=== PATIENT | female | born 1965 | race Caucasian/White ===

== ENCOUNTER 2017-09-11 19:07 | Inpatient (IN) | payer MEDICARE, MEDICAID ==
[~2017-09-11] VITALS: Ht 167.6 cm; Wt 78.4 kg
[~2017-09-11 19:07] MED LIST: ALBU0.084 NEB; ALBUAER3 IN; ALEN70TA55 PO; BUDE160A3 INH; CITA-73 PO; CYCL5TAB PO; EST0625T PO; IBUP600T27 PO; LORA1TAB12 PO; NOR10T PO; OMEP20CA74 OR; PRED-188 PO; SUCR1TAB36 PO; ZOLP10TA PO
[2017-09-11] MEDS ORDERED: OXYCODONE W/ ACETAMINOPHEN 5/325MG TABLET PO ONE (21:00)
[2017-09-11] MEDS ORDERED: methylPREDNISolone SOD SUCC 125 MG/2 ML VL IV ONE (21:00)
[2017-09-11] MEDS ORDERED: ALBUTEROL SULF 2.5 MG/0.5ML(0.5%) NEB SOLN NEB ONE (21:00)
[2017-09-11] MEDS ORDERED: IBUPROFEN 600 MG TAB PO ONE (21:00)
[2017-09-11 21:45] LABS: Basophils # (auto) 0.2 uL; Basophils % (auto) 1.3 % (0.0-2.0); Eosinophils # (auto) 0 uL; Hematocrit 38.3 % (36.0-46.0); Hemoglobin 12.6 g/dL (12.2-16.2); Lymphocytes # (auto) 0.5 uL; Lymphocytes % (auto) 3.8 % (10.0-50.0); Mean Corpuscular Hemoglobin 30.1 pg (28.0-32.0); Mean Corpuscular Hgb Conc. 32.8 g/dL (32.0-36.0); Mean Corpuscular Volume 91.7 fL (80.0-100.0); Monocytes # (auto) 0.9 uL; Monocytes % (auto) 7.1 % (0.0-12.0); Neutrophils # (auto) 11.7 uL; Neutrophils % (auto) 87.8 % (37.0-80.0); Platelet Count (auto) 275 10^3/uL (140-450); Red Blood Cells 4.18 10^6/uL (4.0-5.20); White Blood Cell 13.3 10^3/uL (4.4-10.8)
[2017-09-11 22:01] LABS: Albumin 3.6 g/dL (3.4-5.0); BUN/Creatinine Ratio 14.5; Bilirubin, Total 0.3 mg/dL (0.2-1.0); Calcium 8.7 mg/dL (8.5-10.1); Potassium 4.4 mmol/L (3.5-5.1); Total Protein 6.7 g/dL (6.4-8.2)
[2017-09-11] MEDS ORDERED: LORazepam 0.5 MG TAB PO ONE (23:00)
[2017-09-11] MEDS ORDERED: ZOLPIDEM TARTRATE 5 MG TAB PO ONE (23:00)
[2017-09-11 23:20] LABS: Urine WBC None Seen /hpf (0 - 5)
[2017-09-11 23:40] LABS: Urine Bacteria NONE SEEN /hpf (None Seen); Urine Blood Negative /uL (Negative); Urine Mucus FEW (None Seen); Urine Specific Gravity 1.008 (1.001-1.035)
[2017-09-11] MEDS ORDERED: LEVOFLOXACIN 500MG 100 ML IV ONE (23:45)
[2017-09-12] VITALS (7 sets, daily range): BP systolic 122–133; BP diastolic 69–91
[2017-09-12] MEDS ORDERED: LORazepam 2MG/ML-1ML VIAL IV PRN
[2017-09-12] MEDS ORDERED: ACETAMINOPHEN 500 MG TAB PO PRN
[2017-09-12] MEDS ORDERED: ONDANSETRON HCL 4 MG/2 ML VIAL IV PRN
[2017-09-12] MEDS ORDERED: ZOLPIDEM TARTRATE 5 MG TAB PO PRN
[2017-09-12] MEDS ORDERED: DOXYCYCLINE HYC 100MG/250ML 250 ML IV SCH (02:00)
[2017-09-12] MEDS: OXYCODONE W/ ACETAMINOPHEN 5/325MG TABLET PO PRN ×3 (03:49→17:43)
[2017-09-12] MEDS: IPRATROPIUM BROM 0.5 MG/2.5ML INH SOL NEB SCH ×4 (06:00→18:00)
[2017-09-12 06:02] LABS: Calcium 8.8 mg/dL (8.5-10.1); Potassium 4.5 mmol/L (3.5-5.1)
[2017-09-12 06:05] LABS: BUN/Creatinine Ratio 13.9
[2017-09-12] MEDS: ALBUTEROL SULF 2.5 MG/0.5ML(0.5%) NEB SOLN NEB SCH ×4 (06:19→20:14)
[2017-09-12 06:36] LABS: Basophils # (auto) 0 uL; Basophils % (auto) 0.4 % (0.0-2.0); Eosinophils # (auto) 1.1 uL; Eosinophils % (auto) 10.4 % (0.0-7.0); Hematocrit 38.6 % (36.0-46.0); Hemoglobin 12.5 g/dL (12.2-16.2); Lymphocytes # (auto) 0.3 uL; Lymphocytes % (auto) 2.8 % (10.0-50.0); Mean Corpuscular Hemoglobin 29.9 pg (28.0-32.0); Mean Corpuscular Hgb Conc. 32.3 g/dL (32.0-36.0); Mean Corpuscular Volume 92.7 fL (80.0-100.0); Monocytes # (auto) 0.1 uL; Monocytes % (auto) 0.9 % (0.0-12.0); Neutrophils # (auto) 8.8 uL; Neutrophils % (auto) 85.5 % (37.0-80.0); Platelet Count (auto) 276 10^3/uL (140-450); Red Blood Cells 4.17 10^6/uL (4.0-5.20); White Blood Cell 10.3 10^3/uL (4.4-10.8)
[2017-09-12] MEDS ORDERED: guaiFENesin-DM 100/10mg/5ml SYR PO PRN (10:45)
[2017-09-12] MEDS ORDERED: methylPREDNISolone SOD SUCC 40 MG/ML VL IV ONE (10:45)
[2017-09-12] MEDS ORDERED: PANTOPRAZOLE 40 MG TAB PO ONE ×2 (11:00→11:15)
[2017-09-12] MEDS ORDERED: DEXTROSE (50%) 50ML SYRG IV PRN (11:00)
[2017-09-12] MEDS: amLODIPine BESYLATE 5 MG TAB PO SCH (11:04)
[2017-09-12] MEDS ORDERED: ENOXAPARIN SOD 40 MG/0.4 ML SYRINGE SC ONE (11:15)
[2017-09-12] MEDS ORDERED: DOCUSATE SOD 100 MG CAP PO PRN (11:30)
[2017-09-12] MEDS: ACCU-CHEK COMFORT CURVE STRIP VI SCH ×3 (11:34→22:10)
[2017-09-12] MEDS: InsuLIN REG 1unit/0.01ml Soln (100units/ml) SC SCH ×3 (12:06→22:10)
[2017-09-12] MEDS: LORazepam 0.5 MG TAB PO PRN (12:06)
[2017-09-12] MEDS: LORATADINE 10 MG TAB PO SCH (12:06)
[2017-09-12] MEDS: DOXYCYCLINE 100 MG TAB/CAP PO SCH (21:39)
[2017-09-12] MEDS: methylPREDNISolone SOD SUCC 40 MG/ML VL IV SCH (21:39)
[2017-09-13] MEDS: OXYCODONE W/ ACETAMINOPHEN 5/325MG TABLET PO PRN ×2 (03:19→20:16)
[2017-09-13] MEDS: InsuLIN REG 1unit/0.01ml Soln (100units/ml) SC SCH ×4 (05:40→22:00)
[2017-09-13] MEDS: ACCU-CHEK COMFORT CURVE STRIP VI SCH ×4 (05:40→22:00)
[2017-09-13] MEDS: IPRATROPIUM BROM 0.5 MG/2.5ML INH SOL NEB SCH ×4 (07:11→19:56)
[2017-09-13] MEDS: ALBUTEROL SULF 2.5 MG/0.5ML(0.5%) NEB SOLN NEB SCH ×4 (07:11→19:56)
[2017-09-13 07:30] VITALS: BP 117/80
[2017-09-13 08:00] VITALS: BP 117/80
[2017-09-13] MEDS: LORATADINE 10 MG TAB PO SCH (09:36)
[2017-09-13] MEDS: methylPREDNISolone SOD SUCC 40 MG/ML VL IV SCH (09:36)
[2017-09-13] MEDS: amLODIPine BESYLATE 5 MG TAB PO SCH (09:37)
[2017-09-13] MEDS: PANTOPRAZOLE 40 MG TAB PO SCH (09:38)
[2017-09-13] MEDS: DOXYCYCLINE 100 MG TAB/CAP PO SCH ×2 (09:38→22:59)
[2017-09-13] MEDS ORDERED: ENOXAPARIN SOD 40 MG/0.4 ML SYRINGE SC SCH (10:00)
[2017-09-13 13:22] VITALS: BP 126/76
[2017-09-13 16:49] VITALS: BP 121/75
[2017-09-13 22:00] VITALS: BP 144/89
[2017-09-13] MEDS: methylPREDNISolone SOD SUCC 125 MG/2 ML VL IV SCH (23:00)
[2017-09-13] MEDS: LORazepam 0.5 MG TAB PO PRN (23:07)
[2017-09-14] MEDS: OXYCODONE W/ ACETAMINOPHEN 5/325MG TABLET PO PRN ×2 (02:26→08:52)
[2017-09-14 05:00] VITALS: BP 111/68
[2017-09-14 05:59] LABS: Basophils # (auto) 0 uL; Eosinophils # (auto) 0 uL; Hematocrit 40.6 % (36.0-46.0); Hemoglobin 13.4 g/dL (12.2-16.2); Lymphocytes # (auto) 0.5 uL; Lymphocytes % (auto) 3.8 % (10.0-50.0); Mean Corpuscular Hemoglobin 30.5 pg (28.0-32.0); Mean Corpuscular Volume 92.5 fL (80.0-100.0); Monocytes # (auto) 0.6 uL; Monocytes % (auto) 4.5 % (0.0-12.0); Neutrophils # (auto) 11.9 uL; Neutrophils % (auto) 91.7 % (37.0-80.0); Platelet Count (auto) 297 10^3/uL (140-450); Red Blood Cells 4.39 10^6/uL (4.0-5.20); Red Cell Distribution Width 14.3 % (11.8-14.3)
[2017-09-14] MEDS: IPRATROPIUM BROM 0.5 MG/2.5ML INH SOL NEB SCH ×3 (06:00→13:50)
[2017-09-14 06:21] LABS: Calcium 8.8 mg/dL (8.5-10.1); Magnesium 2.7 mg/dL (1.6-2.6); Potassium 4.2 mmol/L (3.5-5.1)
[2017-09-14] MEDS: ALBUTEROL SULF 2.5 MG/0.5ML(0.5%) NEB SOLN NEB SCH ×3 (06:21→13:50)
[2017-09-14 06:23] LABS: BUN/Creatinine Ratio 27.5
[2017-09-14] MEDS: ACCU-CHEK COMFORT CURVE STRIP VI SCH ×2 (06:56→11:30)
[2017-09-14] MEDS: InsuLIN REG 1unit/0.01ml Soln (100units/ml) SC SCH ×2 (06:56→11:30)
[2017-09-14 07:24] VITALS: BP 121/81
[2017-09-14 08:00] VITALS: BP 121/81
[2017-09-14] MEDS: methylPREDNISolone SOD SUCC 125 MG/2 ML VL IV SCH (10:15)
[2017-09-14] MEDS: LORATADINE 10 MG TAB PO SCH (10:15)
[2017-09-14] MEDS: DOXYCYCLINE 100 MG TAB/CAP PO SCH (10:16)
[2017-09-14] MEDS: amLODIPine BESYLATE 5 MG TAB PO SCH (10:16)
[2017-09-14] MEDS: PANTOPRAZOLE 40 MG TAB PO SCH (10:16)
[2017-09-14 11:50] VITALS: BP 128/85
[2017-09-14] MEDS ORDERED: DOX100T PO (13:53)
[2017-09-14 15:30] VITALS: BP 128/85
== END 2017-09-14 15:30 | disposition home or self-care (01) | DRG 189 ==
LOC: EDBD 19:07 → ER 19:15 → OVERFLOW 19:16 → WEST WING 09-12 08:13
PROVIDERS: ADMIT Nurse Practitioner Family; ATTEND Internal Medicine
PROC: 5A09357 Assistance with Respiratory Ventilation, Less than 24 Consecutive Hours, Continuous Positive Airway Pressure (ICD-10-PCS; principal; 2017-09-11)
DX: J96.21 Acute and chronic respiratory failure with hypoxia (principal); Z99.81 Dependence on supplemental oxygen; J44.0 Chronic obstructive pulmonary disease with (acute) lower respiratory infection; E11.9 Type 2 diabetes mellitus without complications; E78.5 Hyperlipidemia, unspecified; D72.829 Elevated white blood cell count, unspecified; J44.1 Chronic obstructive pulmonary disease with (acute) exacerbation; J96.11 Chronic respiratory failure with hypoxia; J20.9 Acute bronchitis, unspecified; F41.9 Anxiety disorder, unspecified; I10 Essential (primary) hypertension; K21.9 Gastro-esophageal reflux disease without esophagitis; T38.0X5A Adverse effect of glucocorticoids and synthetic analogues, initial encounter; Z79.51 Long term (current) use of inhaled steroids; Z79.52 Long term (current) use of systemic steroids; Z79.899 Other long term (current) drug therapy; Z82.5 Family history of asthma and other chronic lower respiratory diseases; Z87.891 Personal history of nicotine dependence; Z90.710 Acquired absence of both cervix and uterus; Z82.61 Family history of arthritis
CPT/HCPCS: 36415; 36600; 71045; 80048; 80053; 81001; 82805; 82962; 83036; 83605; 83735; 83880; 84484; 85025; 85379; 87040; 93005; 94640; 94660; 96365; 96367; 96375; J1815; J1956; J3490

== ENCOUNTER 2018-02-26 05:51 | Inpatient (IN) | payer MEDICARE, MEDICAID ==
[2018-02-26] VITALS (10 sets, daily range): BP systolic 107–166; BP diastolic 37–114
[~2018-02-26] VITALS: Ht 167.6 cm; Wt 72.5 kg
[~2018-02-26 05:51] MED LIST changes: +DOX100T PO
[2018-02-26] MEDS ORDERED: cefTRIAXone 1GM/10ml IVPUSH 10 ML IV ONE (06:15)
[2018-02-26] MEDS ORDERED: IPRATROPIUM BROM 0.5 MG/2.5ML INH SOL NEB ONE (06:15)
[2018-02-26] MEDS ORDERED: ALBUTEROL SULF 2.5 MG/0.5ML(0.5%) NEB SOLN NEB ONE (06:15)
[2018-02-26] MEDS ORDERED: LORazepam 2MG/ML-1ML VIAL IV ONE ×2 (06:15→08:15)
[2018-02-26] MEDS ORDERED: methylPREDNISolone SOD SUCC 125 MG/2 ML VL IV ONE ×2 (06:15)
[2018-02-26] MEDS ORDERED: MAGNESIUM SULFATE 1GM/100ML 100 ML IV ONE (06:33)
[2018-02-26 06:37] LABS: Basophils # (auto) 0.2 uL; Basophils % (auto) 1.1 % (0.0-2.0); Eosinophils # (auto) 0.4 uL; Eosinophils % (auto) 2.6 % (0.0-7.0); Hematocrit 40.5 % (36.0-46.0); Hemoglobin 13.7 g/dL (12.2-16.2); Lymphocytes # (auto) 2.3 uL; Lymphocytes % (auto) 14.1 % (10.0-50.0); Mean Corpuscular Hemoglobin 30.8 pg (28.0-32.0); Mean Corpuscular Hgb Conc. 33.8 g/dL (32.0-36.0); Mean Corpuscular Volume 90.9 fL (80.0-100.0); Monocytes # (auto) 2.6 uL; Monocytes % (auto) 16.1 % (0.0-12.0); Neutrophils # (auto) 10.6 uL; Neutrophils % (auto) 66.1 % (37.0-80.0); Platelet Count (auto) 297 10^3/uL (140-450); Red Blood Cells 4.45 10^6/uL (4.0-5.20); Red Cell Distribution Width 14.1 % (11.8-14.3)
[2018-02-26] MEDS: MAGNESIUM SULFATE 1GM/100ML 100 ML IV SCH ×2 (06:38→08:07)
[2018-02-26 06:48] LABS: BUN/Creatinine Ratio 14.8; Potassium 3.6 mmol/L (3.5-5.1)
[2018-02-26] MEDS ORDERED: VANCOMYCIN 1GM/250ML 250 ML IV ONE (08:15)
[2018-02-26] MEDS ORDERED: LORazepam 2MG/ML-1ML VIAL ONE (08:21)
[2018-02-26] MEDS ORDERED: VANCOMYCIN PER PHARMACY 0 MG IV SCH (09:45)
[2018-02-26] MEDS ORDERED: MIDAZOLAM DRIP 50 mg/50mL 50 ML IV ONE (09:46)
[2018-02-26] MEDS ORDERED: ETOMIDATE (2MG/ML) 20ML VIAL IV ONE ×2 (09:46→14:15)
[2018-02-26] MEDS ORDERED: SUCCINYLCHOLINE CHLORIDE 20 MG/ML 10ML VIAL IV ONE ×2 (09:47→14:15)
[2018-02-26] MEDS: SODIUM CHLORIDE 0.9% 1,000 ML IV SCH (10:00)
[2018-02-26] MEDS ORDERED: NALBUPHINE HCL 10 MG/1ml INJECTION IV PRN (10:00)
[2018-02-26] MEDS ORDERED: ONDANSETRON HCL 4 MG/2 ML VIAL IV PRN ×2 (10:00→10:15)
[2018-02-26] MEDS ORDERED: NITROGLYCERIN 0.4 MG SL TAB SL PRN (10:00)
[2018-02-26] MEDS ORDERED: MORPHINE SULF(PF) 0.5MG/ML 10ML VIAL IV PRN (10:00)
[2018-02-26] MEDS ORDERED: MORPHINE SULFATE 8mg/ml INJ SDV IV PRN (10:15)
[2018-02-26] MEDS: MIDAZOLAM DRIP 50 mg/50mL 50 ML IV SCH ×2 (10:16→15:02)
[2018-02-26] MEDS ORDERED: PROPOFOL 100 ML IV ONE (10:19)
[2018-02-26] MEDS: PROPOFOL 100 ML IV SCH ×3 (10:20→15:02)
[2018-02-26] MEDS: FAMOTIDINE (10MG/ML) 2ML VL IV SCH (12:00)
[2018-02-26] MEDS: ENOXAPARIN SOD 40 MG/0.4 ML SYRINGE SC SCH (12:00)
[2018-02-26] MEDS: PANTOPRAZOLE 40 MG/10 ML VIAL IV SCH (12:00)
[2018-02-26] MEDS: fentaNYL Drip 2500mCg/250mlNS 250 ML IV SCH (13:30)
[2018-02-26] MEDS: DOXYCYCLINE 100MG/250ML 250 ML IV SCH ×2 (13:30→22:49)
[2018-02-26] MEDS: methylPREDNISolone SOD SUCC 40 MG/ML VL IV SCH ×2 (14:00→18:49)
[2018-02-26] MEDS ORDERED: NOREPINEPHRINE 8 MG/250ML KIT 250 ML IV ONE (14:33)
[2018-02-26] MEDS: NOREPINEPHRINE 8 MG/250ML KIT 250 ML IV SCH (14:38)
[2018-02-26] MEDS: BUDESONIDE (INHALATION) 0.5 MG/2 ML NEB NEB SCH ×2 (18:45→18:46)
[2018-02-26] MEDS: ALBUTEROL SULF 2.5 MG/0.5ML(0.5%) NEB SOLN NEB SCH ×2 (18:46→22:12)
[2018-02-26] MEDS: VANCOMYCIN 1GM/250ML 250 ML IV SCH (21:33)
[2018-02-27] VITALS (100 sets, daily range): BP systolic 96–137; BP diastolic 59–88
[2018-02-27] MEDS: methylPREDNISolone SOD SUCC 40 MG/ML VL IV SCH ×4 (00:15→17:55)
[2018-02-27] MEDS: ALBUTEROL SULF 2.5 MG/0.5ML(0.5%) NEB SOLN NEB SCH ×6 (02:29→22:16)
[2018-02-27] MEDS: PROPOFOL 100 ML IV SCH (03:53)
[2018-02-27] MEDS: MIDAZOLAM DRIP 50 mg/50mL 50 ML IV SCH ×2 (03:54→14:32)
[2018-02-27] MEDS: SODIUM CHLORIDE 0.9% 1,000 ML IV SCH (03:54)
[2018-02-27 04:43] LABS: Basophils # (auto) 0 uL; Eosinophils # (auto) 0 uL; Hematocrit 35.1 % (36.0-46.0); Hemoglobin 11.8 g/dL (12.2-16.2); Lymphocytes # (auto) 0.6 uL; Lymphocytes % (auto) 3.9 % (10.0-50.0); Mean Corpuscular Hemoglobin 30.6 pg (28.0-32.0); Mean Corpuscular Hgb Conc. 33.6 g/dL (32.0-36.0); Mean Corpuscular Volume 91.1 fL (80.0-100.0); Monocytes # (auto) 0.7 uL; Monocytes % (auto) 4.4 % (0.0-12.0); Neutrophils # (auto) 13.6 uL; Neutrophils % (auto) 91.7 % (37.0-80.0); Platelet Count (auto) 235 10^3/uL (140-450); Red Blood Cells 3.86 10^6/uL (4.0-5.20); Red Cell Distribution Width 13.8 % (11.8-14.3); White Blood Cell 14.8 10^3/uL (4.4-10.8)
[2018-02-27 04:48] LABS: Albumin 3.2 g/dL (3.4-5.0); BUN/Creatinine Ratio 10.5; Potassium 3.5 mmol/L (3.5-5.1)
[2018-02-27 04:51] LABS: Bilirubin, Total 0.5 mg/dL (0.2-1.0); Total Protein 5.7 g/dL (6.4-8.2)
[2018-02-27] MEDS ORDERED: ENOXAPARIN SOD 40 MG/0.4 ML SYRINGE SC SCH (10:00)
[2018-02-27] MEDS: DOXYCYCLINE 100MG/250ML 250 ML IV SCH ×2 (10:30→22:23)
[2018-02-27] MEDS: BUDESONIDE (INHALATION) 0.5 MG/2 ML NEB NEB SCH ×2 (10:35→22:16)
[2018-02-27] MEDS: PANTOPRAZOLE 40 MG/10 ML VIAL IV SCH ×2 (11:10→22:23)
[2018-02-27] MEDS: FAMOTIDINE (10MG/ML) 2ML VL IV SCH (11:11)
[2018-02-27] MEDS: VANCOMYCIN 1GM/250ML 250 ML IV SCH (11:11)
[2018-02-27] MEDS: ENOXAPARIN SOD 40 MG/0.4 ML SYRINGE SC SCH (11:35)
[2018-02-27] MEDS ORDERED: CITALOPRAM HYDROBR 20 MG TAB PO ONE (11:45)
[2018-02-27] MEDS ORDERED: DEXTROSE (50%) 50ML SYRG IV PRN (12:00)
[2018-02-27] MEDS: ACCU-CHEK COMFORT CURVE STRIP VI SCH ×2 (12:21→17:45)
[2018-02-27] MEDS: fentaNYL Drip 2500mCg/250mlNS 250 ML IV SCH (12:21)
[2018-02-27] MEDS: InsuLIN REG 1unit/0.01ml Soln (100units/ml) SC SCH ×2 (12:39→17:55)
[2018-02-27 12:56] LABS: Urine Bacteria NONE SEEN /hpf (None Seen); Urine Blood Negative /uL (Negative); Urine Mucus MANY (None Seen); Urine Specific Gravity 1.026 (1.001-1.035); Urine WBC 8 /hpf (0 - 5)
[2018-02-27 13:06] LABS: INR 0.94 (0.9-1.15); Partial Thromboplastin Time 22.9 sec (23.78-33.04); Prothrombin Time 10.1 sec (9.27-12.13)
[2018-02-27 13:10] LABS: Alcohol, Urine < 3.0 mg/dL (0-5); Amphetamine Screen, Urine NEGATIVE (NEGATIVE); Barbiturate Scree,Urine NEGATIVE (NEGATIVE); Benzodiazephine Screen, Urine POSITIVE (NEGATIVE); Cannabinoid Screen, Urine NEGATIVE (NEGATIVE); Cocaine Screen, Urine NEGATIVE (NEGATIVE); Opiate Scree,Urine NEGATIVE (NEGATIVE); Phencyclidine Screen, Urine NEGATIVE (NEGATIVE)
[2018-02-27] MEDS: NOREPINEPHRINE 8 MG/250ML KIT 250 ML IV SCH (14:30)
[2018-02-27] MEDS ORDERED: PRE1T PO (16:42)
[2018-02-27] MEDS ORDERED: LORA-654 PO (16:43)
[2018-02-27] MEDS ORDERED: CYCL1TAB18 PO (16:44)
[2018-02-27] MEDS ORDERED: AMLO10TA2 PO (16:45)
[2018-02-27] MEDS ORDERED: BISA-13 PO (16:47)
[2018-02-27] MEDS ORDERED: ATOR10TA52 PO (16:47)
[2018-02-27] MEDS ORDERED: LORA-622 PO (16:47)
[2018-02-27] MEDS ORDERED: ARTISOL13 EACHEYE (16:53)
[2018-02-27] MEDS ORDERED: ESCI20TA51 PO (16:53)
[2018-02-27] MEDS ORDERED: FLUT0.05 NAS (16:53)
[2018-02-28] VITALS (105 sets, daily range): BP systolic 83–171; BP diastolic 48–119
[2018-02-28] MEDS: InsuLIN REG 1unit/0.01ml Soln (100units/ml) SC SCH ×4 (00:01→17:55)
[2018-02-28] MEDS: MIDAZOLAM DRIP 50 mg/50mL 50 ML IV SCH ×3 (00:10→11:09)
[2018-02-28] MEDS: SODIUM CHLORIDE 0.9% 1,000 ML IV SCH (00:51)
[2018-02-28] MEDS: ALBUTEROL SULF 2.5 MG/0.5ML(0.5%) NEB SOLN NEB SCH ×6 (02:30→22:18)
[2018-02-28 03:43] LABS: Basophils # (auto) 0 uL; Eosinophils # (auto) 0 uL; Hematocrit 35.2 % (36.0-46.0); Hemoglobin 11.8 g/dL (12.2-16.2); Lymphocytes # (auto) 0.5 uL; Mean Corpuscular Hemoglobin 30.4 pg (28.0-32.0); Mean Corpuscular Hgb Conc. 33.6 g/dL (32.0-36.0); Mean Corpuscular Volume 90.5 fL (80.0-100.0); Monocytes # (auto) 1.1 uL; Monocytes % (auto) 6.7 % (0.0-12.0); Neutrophils # (auto) 14.8 uL; Neutrophils % (auto) 90.3 % (37.0-80.0); Platelet Count (auto) 225 10^3/uL (140-450); Red Blood Cells 3.89 10^6/uL (4.0-5.20); Red Cell Distribution Width 14.2 % (11.8-14.3); White Blood Cell 16.4 10^3/uL (4.4-10.8)
[2018-02-28 03:56] LABS: BUN/Creatinine Ratio 24.2; Calcium 8.2 mg/dL (8.5-10.1); Potassium 3.6 mmol/L (3.5-5.1)
[2018-02-28] MEDS: methylPREDNISolone SOD SUCC 40 MG/ML VL IV SCH ×2 (05:37)
[2018-02-28] MEDS: ACCU-CHEK COMFORT CURVE STRIP VI SCH ×4 (06:00→17:55)
[2018-02-28] MEDS ORDERED: FUROSEMIDE 40 MG/4 ML VIAL IV ONE ×2 (06:30→14:45)
[2018-02-28] MEDS: PROPOFOL 100 ML IV SCH ×2 (07:37→16:10)
[2018-02-28] MEDS: PANTOPRAZOLE 40 MG/10 ML VIAL IV SCH ×2 (09:06→22:06)
[2018-02-28] MEDS: CITALOPRAM HYDROBR 20 MG TAB PO SCH (09:06)
[2018-02-28] MEDS: DOXYCYCLINE 100MG/250ML 250 ML IV SCH ×2 (09:21→22:05)
[2018-02-28] MEDS ORDERED: ENOXAPARIN SOD 40 MG/0.4 ML SYRINGE SC SCH (10:00)
[2018-02-28] MEDS: BUDESONIDE (INHALATION) 0.5 MG/2 ML NEB NEB SCH ×2 (10:07→19:02)
[2018-02-28] MEDS: methylPREDNISolone SOD SUCC 125 MG/2 ML VL IV SCH ×2 (11:09→18:00)
[2018-02-28] MEDS: ENOXAPARIN SOD 40 MG/0.4 ML SYRINGE SC SCH (11:09)
[2018-02-28] MEDS: fentaNYL Drip 2500mCg/250mlNS 250 ML IV SCH ×2 (12:21→20:22)
[2018-02-28] MEDS: ACETYLCYSTEINE 10 %(100MG/ML) SOL 4ML NEB SCH ×2 (14:12→22:18)
[2018-02-28] MEDS: NOREPINEPHRINE 8 MG/250ML KIT 250 ML IV SCH (14:30)
[2018-03-01] VITALS (107 sets, daily range): BP systolic 94–160; BP diastolic 33–108
[2018-03-01] MEDS: InsuLIN REG 1unit/0.01ml Soln (100units/ml) SC SCH ×4 (00:23→18:02)
[2018-03-01] MEDS: methylPREDNISolone SOD SUCC 125 MG/2 ML VL IV SCH ×5 (00:23→23:59)
[2018-03-01] MEDS: ALBUTEROL SULF 2.5 MG/0.5ML(0.5%) NEB SOLN NEB SCH ×6 (02:35→22:15)
[2018-03-01 03:27] LABS: Basophils # (auto) 0 uL; Eosinophils # (auto) 0 uL; Hematocrit 34.7 % (36.0-46.0); Hemoglobin 11.5 g/dL (12.2-16.2); Lymphocytes # (auto) 0.4 uL; Lymphocytes % (auto) 2.8 % (10.0-50.0); Mean Corpuscular Hemoglobin 30.2 pg (28.0-32.0); Mean Corpuscular Hgb Conc. 33.1 g/dL (32.0-36.0); Mean Corpuscular Volume 91.1 fL (80.0-100.0); Monocytes # (auto) 0.9 uL; Monocytes % (auto) 7.1 % (0.0-12.0); Neutrophils # (auto) 11.9 uL; Neutrophils % (auto) 90.1 % (37.0-80.0); Nucleated Red Blood Cells % 0.1 %; Platelet Count (auto) 219 10^3/uL (140-450); Red Blood Cells 3.81 10^6/uL (4.0-5.20); Red Cell Distribution Width 14.1 % (11.8-14.3); White Blood Cell 13.2 10^3/uL (4.4-10.8)
[2018-03-01] MEDS: PROPOFOL 100 ML IV SCH (03:28)
[2018-03-01 03:52] LABS: Calcium 8.2 mg/dL (8.5-10.1); Potassium 3.1 mmol/L (3.5-5.1)
[2018-03-01 03:55] LABS: BUN/Creatinine Ratio 34.2
[2018-03-01 03:57] LABS: Bilirubin, Total 0.5 mg/dL (0.2-1.0); Total Protein 5.8 g/dL (6.4-8.2)
[2018-03-01] MEDS: ACCU-CHEK COMFORT CURVE STRIP VI SCH ×5 (06:19→23:59)
[2018-03-01] MEDS: PANTOPRAZOLE 40 MG/10 ML VIAL IV SCH ×2 (09:27→22:37)
[2018-03-01] MEDS: ENOXAPARIN SOD 40 MG/0.4 ML SYRINGE SC SCH (09:28)
[2018-03-01] MEDS: CITALOPRAM HYDROBR 20 MG TAB PO SCH (09:28)
[2018-03-01] MEDS: DOXYCYCLINE 100MG/250ML 250 ML IV SCH ×2 (09:31→22:37)
[2018-03-01] MEDS: ACETYLCYSTEINE 10 %(100MG/ML) SOL 4ML NEB SCH ×3 (09:47→22:16)
[2018-03-01] MEDS: BUDESONIDE (INHALATION) 0.5 MG/2 ML NEB NEB SCH ×2 (09:47→22:15)
[2018-03-01] MEDS ORDERED: POTASSIUM CHL 20MEQ/100ML 100 ML IV ONE (12:00)
[2018-03-01] MEDS: NOREPINEPHRINE 8 MG/250ML KIT 250 ML IV SCH (14:30)
[2018-03-01] MEDS ORDERED: FUROSEMIDE 40 MG/4 ML VIAL IV ONE (16:30)
[2018-03-02] VITALS (85 sets, daily range): BP systolic 114–159; BP diastolic 63–114
[2018-03-02] MEDS: POTASSIUM CHL 20MEQ/100ML 100 ML IV SCH ×2 (01:39→03:45)
[2018-03-02] MEDS: ALBUTEROL SULF 2.5 MG/0.5ML(0.5%) NEB SOLN NEB SCH ×6 (02:23→22:52)
[2018-03-02 04:38] LABS: BUN/Creatinine Ratio 46.2; Calcium 8.7 mg/dL (8.5-10.1); Potassium 3.5 mmol/L (3.5-5.1)
[2018-03-02] MEDS: methylPREDNISolone SOD SUCC 125 MG/2 ML VL IV SCH ×4 (05:37→23:47)
[2018-03-02] MEDS: ACCU-CHEK COMFORT CURVE STRIP VI SCH ×4 (05:37→23:47)
[2018-03-02] MEDS: InsuLIN REG 1unit/0.01ml Soln (100units/ml) SC SCH ×5 (05:38→23:47)
[2018-03-02] MEDS: ACETYLCYSTEINE 10 %(100MG/ML) SOL 4ML NEB SCH ×3 (05:58→22:52)
[2018-03-02] MEDS: BUDESONIDE (INHALATION) 0.5 MG/2 ML NEB NEB SCH ×2 (09:48→22:52)
[2018-03-02] MEDS: PANTOPRAZOLE 40 MG/10 ML VIAL IV SCH ×2 (09:59→21:33)
[2018-03-02] MEDS: ENOXAPARIN SOD 40 MG/0.4 ML SYRINGE SC SCH (09:59)
[2018-03-02] MEDS: DOXYCYCLINE 100MG/250ML 250 ML IV SCH ×2 (09:59→22:57)
[2018-03-02] MEDS: CITALOPRAM HYDROBR 20 MG TAB PO SCH (10:00)
[2018-03-02] MEDS: MIDAZOLAM DRIP 50 mg/50mL 50 ML IV SCH (10:16)
[2018-03-02] MEDS: PROPOFOL 100 ML IV SCH (10:16)
[2018-03-02] MEDS: NOREPINEPHRINE 8 MG/250ML KIT 250 ML IV SCH (14:30)
[2018-03-02] MEDS: fentaNYL Drip 2500mCg/250mlNS 250 ML IV SCH (21:33)
[2018-03-03] VITALS (52 sets, daily range): BP systolic 115–150; BP diastolic 56–96
[2018-03-03] MEDS: ALBUTEROL SULF 2.5 MG/0.5ML(0.5%) NEB SOLN NEB SCH ×5 (02:25→22:30)
[2018-03-03 04:56] LABS: Basophils # (auto) 0 uL; Eosinophils # (auto) 0 uL; Hematocrit 41.4 % (36.0-46.0); Hemoglobin 13.9 g/dL (12.2-16.2); Lymphocytes # (auto) 0.3 uL; Lymphocytes % (auto) 1.4 % (10.0-50.0); Mean Corpuscular Hemoglobin 30.8 pg (28.0-32.0); Mean Corpuscular Hgb Conc. 33.6 g/dL (32.0-36.0); Mean Corpuscular Volume 91.7 fL (80.0-100.0); Monocytes # (auto) 2.3 uL; Monocytes % (auto) 11.1 % (0.0-12.0); Neutrophils # (auto) 18.5 uL; Neutrophils % (auto) 87.5 % (37.0-80.0); Platelet Count (auto) 271 10^3/uL (140-450); Red Blood Cells 4.52 10^6/uL (4.0-5.20); Red Cell Distribution Width 13.9 % (11.8-14.3); White Blood Cell 21.2 10^3/uL (4.4-10.8)
[2018-03-03 05:09] LABS: BUN/Creatinine Ratio 46.7; Calcium 8.9 mg/dL (8.5-10.1); Potassium 3.8 mmol/L (3.5-5.1)
[2018-03-03] MEDS: ACETYLCYSTEINE 10 %(100MG/ML) SOL 4ML NEB SCH ×3 (05:47→22:30)
[2018-03-03] MEDS: methylPREDNISolone SOD SUCC 125 MG/2 ML VL IV SCH ×3 (05:49→17:37)
[2018-03-03] MEDS: ACCU-CHEK COMFORT CURVE STRIP VI SCH ×3 (05:49→17:38)
[2018-03-03] MEDS: InsuLIN REG 1unit/0.01ml Soln (100units/ml) SC SCH ×3 (05:49→17:38)
[2018-03-03] MEDS ORDERED: ALENDRONATE SODIUM 10 MG TAB PO SCH (06:00)
[2018-03-03 08:52] LABS: Urine WBC None Seen /hpf (0 - 5)
[2018-03-03 09:06] LABS: Urine Bacteria NONE SEEN /hpf (None Seen); Urine Blood 3+ /uL (Negative); Urine Mucus FEW (None Seen); Urine Specific Gravity 1.028 (1.001-1.035)
[2018-03-03] MEDS: BUDESONIDE (INHALATION) 0.5 MG/2 ML NEB NEB SCH ×2 (09:40→18:36)
[2018-03-03] MEDS: ENOXAPARIN SOD 40 MG/0.4 ML SYRINGE SC SCH (09:43)
[2018-03-03] MEDS: PANTOPRAZOLE 40 MG/10 ML VIAL IV SCH ×2 (09:43→21:35)
[2018-03-03] MEDS: MIDAZOLAM DRIP 50 mg/50mL 50 ML IV SCH (09:48)
[2018-03-03] MEDS: CITALOPRAM HYDROBR 20 MG TAB PO SCH (09:48)
[2018-03-03] MEDS: PROPOFOL 100 ML IV SCH (09:48)
[2018-03-03] MEDS ORDERED: AMIKACIN IV SCH (10:00)
[2018-03-03] MEDS ORDERED: D5W 5% IV SCH (10:00)
[2018-03-03] MEDS: DOXYCYCLINE 100MG/250ML 250 ML IV SCH ×2 (10:50→21:35)
[2018-03-03] MEDS: NOREPINEPHRINE 8 MG/250ML KIT 250 ML IV SCH (13:06)
[2018-03-03] MEDS: HYDROcodone-ACET 10/325MG TAB PO PRN (21:36)
[2018-03-04] VITALS (8 sets, daily range): BP systolic 130–145; BP diastolic 69–93
[2018-03-04] MEDS: HYDROcodone-ACET 10/325MG TAB PO PRN ×3 (02:14→18:51)
[2018-03-04] MEDS: ALBUTEROL SULF 2.5 MG/0.5ML(0.5%) NEB SOLN NEB SCH ×6 (02:35→22:20)
[2018-03-04 04:20] LABS: Basophils # (auto) 0 uL; Basophils % (auto) 0.2 % (0.0-2.0); Eosinophils # (auto) 0 uL; Hematocrit 37.7 % (36.0-46.0); Lymphocytes # (auto) 0.2 uL; Lymphocytes % (auto) 1.7 % (10.0-50.0); Mean Corpuscular Hemoglobin 30.9 pg (28.0-32.0); Mean Corpuscular Hgb Conc. 34.3 g/dL (32.0-36.0); Mean Corpuscular Volume 90.1 fL (80.0-100.0); Monocytes # (auto) 0.9 uL; Monocytes % (auto) 6.5 % (0.0-12.0); Neutrophils # (auto) 12.5 uL; Neutrophils % (auto) 91.6 % (37.0-80.0); Platelet Count (auto) 230 10^3/uL (140-450); Red Blood Cells 4.19 10^6/uL (4.0-5.20); Red Cell Distribution Width 13.6 % (11.8-14.3); White Blood Cell 13.6 10^3/uL (4.4-10.8)
[2018-03-04 04:24] LABS: Albumin 2.7 g/dL (3.4-5.0); BUN/Creatinine Ratio 53.2; Calcium 8.3 mg/dL (8.5-10.1); Potassium 3.6 mmol/L (3.5-5.1)
[2018-03-04 04:27] LABS: Bilirubin, Total 0.9 mg/dL (0.2-1.0); Total Protein 5.8 g/dL (6.4-8.2)
[2018-03-04] MEDS: InsuLIN REG 1unit/0.01ml Soln (100units/ml) SC SCH ×5 (06:00→22:15)
[2018-03-04] MEDS: ACCU-CHEK COMFORT CURVE STRIP VI SCH ×5 (06:05→22:15)
[2018-03-04] MEDS: methylPREDNISolone SOD SUCC 125 MG/2 ML VL IV SCH ×2 (06:05)
[2018-03-04] MEDS: ACETYLCYSTEINE 10 %(100MG/ML) SOL 4ML NEB SCH ×3 (06:54→22:20)
[2018-03-04] MEDS: DOXYCYCLINE 100MG/250ML 250 ML IV SCH ×2 (10:02→22:36)
[2018-03-04] MEDS: CITALOPRAM HYDROBR 20 MG TAB PO SCH (10:03)
[2018-03-04] MEDS: predniSONE 20 MG TAB PO SCH ×2 (10:03→22:00)
[2018-03-04] MEDS: ENOXAPARIN SOD 40 MG/0.4 ML SYRINGE SC SCH (10:04)
[2018-03-04] MEDS: PANTOPRAZOLE 40 MG TAB PO SCH ×2 (10:04→22:00)
[2018-03-04] MEDS: BUDESONIDE (INHALATION) 0.5 MG/2 ML NEB NEB SCH ×2 (10:11→18:07)
[2018-03-04] MEDS ORDERED: LACTULOSE 20Gm/30ML SOLN PO ONE (11:00)
[2018-03-04] MEDS: LACTULOSE 20Gm/30ML SOLN PO SCH (22:00)
[2018-03-05] MEDS: ALBUTEROL SULF 2.5 MG/0.5ML(0.5%) NEB SOLN NEB SCH ×3 (02:30→10:35)
[2018-03-05] MEDS: HYDROcodone-ACET 10/325MG TAB PO PRN ×2 (05:26→11:13)
[2018-03-05] MEDS: ACCU-CHEK COMFORT CURVE STRIP VI SCH (05:41)
[2018-03-05] MEDS: InsuLIN REG 1unit/0.01ml Soln (100units/ml) SC SCH (05:41)
[2018-03-05 06:07] VITALS: BP 137/97
[2018-03-05] MEDS: ACETYLCYSTEINE 10 %(100MG/ML) SOL 4ML NEB SCH (06:40)
[2018-03-05] MEDS: BUDESONIDE (INHALATION) 0.5 MG/2 ML NEB NEB SCH (06:40)
[2018-03-05 06:49] LABS: Basophils # (auto) 0 uL; Basophils % (auto) 0.1 % (0.0-2.0); Eosinophils # (auto) 0 uL; Hematocrit 38.5 % (36.0-46.0); Lymphocytes # (auto) 0.3 uL; Lymphocytes % (auto) 2.5 % (10.0-50.0); Mean Corpuscular Hemoglobin 30.5 pg (28.0-32.0); Mean Corpuscular Hgb Conc. 33.8 g/dL (32.0-36.0); Mean Corpuscular Volume 90.1 fL (80.0-100.0); Monocytes # (auto) 1.8 uL; Monocytes % (auto) 13.6 % (0.0-12.0); Neutrophils # (auto) 10.9 uL; Neutrophils % (auto) 83.8 % (37.0-80.0); Platelet Count (auto) 241 10^3/uL (140-450); Red Blood Cells 4.27 10^6/uL (4.0-5.20); Red Cell Distribution Width 13.8 % (11.8-14.3)
[2018-03-05 07:10] LABS: BUN/Creatinine Ratio 28.1; Calcium 8.3 mg/dL (8.5-10.1); Potassium 3.6 mmol/L (3.5-5.1)
[2018-03-05 09:00] VITALS: BP 145/84
[2018-03-05] MEDS: LACTULOSE 20Gm/30ML SOLN PO SCH (10:00)
[2018-03-05] MEDS: ENOXAPARIN SOD 40 MG/0.4 ML SYRINGE SC SCH (10:08)
[2018-03-05] MEDS: DOXYCYCLINE 100MG/250ML 250 ML IV SCH (10:09)
[2018-03-05] MEDS: PANTOPRAZOLE 40 MG TAB PO SCH (10:09)
[2018-03-05] MEDS: predniSONE 20 MG TAB PO SCH (10:09)
[2018-03-05] MEDS: CITALOPRAM HYDROBR 20 MG TAB PO SCH (10:09)
[2018-03-05] MEDS ORDERED: DOXYCYCLINE 100 MG TAB/CAP PO ONE (10:45)
[2018-03-05 10:55] VITALS: BP 156/93
[2018-03-05] MEDS ORDERED: ALBUTEROL SULF 2.5 MG/0.5ML(0.5%) NEB SOLN ONE (13:55)
[2018-03-05] MEDS ORDERED: IPRATROPIUM BROM 0.5 MG/2.5ML INH SOL ONE (13:55)
== END 2018-03-05 12:08 | disposition home or self-care (01) | DRG 207 ==
LOC: EDBD 05:51 → ER 05:56 → TELE 05:57 → ICU WEST 02-27 01:17 → CENTRAL 03-04 12:41
PROVIDERS: ADMIT Internal Medicine; ATTEND Internal Medicine
PROC: 5A1955Z Respiratory Ventilation, Greater than 96 Consecutive Hours (ICD-10-PCS; principal; 2018-02-26)
PROC: 5A09357 Assistance with Respiratory Ventilation, Less than 24 Consecutive Hours, Continuous Positive Airway Pressure (ICD-10-PCS; 2018-02-26)
PROC: 0BH17EZ Insertion of Endotracheal Airway into Trachea, Via Natural or Artificial Opening (ICD-10-PCS; 2018-02-26)
PROC: 02HV33Z Insertion of Infusion Device into Superior Vena Cava, Percutaneous Approach (ICD-10-PCS; 2018-02-27)
DX: J96.21 Acute and chronic respiratory failure with hypoxia (principal); J44.1 Chronic obstructive pulmonary disease with (acute) exacerbation; E44.1 Mild protein-calorie malnutrition; J44.0 Chronic obstructive pulmonary disease with (acute) lower respiratory infection; I31.3 Pericardial effusion (noninflammatory); J45.901 Unspecified asthma with (acute) exacerbation; K92.2 Gastrointestinal hemorrhage, unspecified; J20.9 Acute bronchitis, unspecified; F41.9 Anxiety disorder, unspecified; K21.9 Gastro-esophageal reflux disease without esophagitis; E78.5 Hyperlipidemia, unspecified; I10 Essential (primary) hypertension; E11.9 Type 2 diabetes mellitus without complications; F17.200 Nicotine dependence, unspecified, uncomplicated; F32.9 Major depressive disorder, single episode, unspecified; I05.0 Rheumatic mitral stenosis; J96.22 Acute and chronic respiratory failure with hypercapnia; T38.0X5A Adverse effect of glucocorticoids and synthetic analogues, initial encounter; Z79.52 Long term (current) use of systemic steroids; Z82.49 Family history of ischemic heart disease and other diseases of the circulatory system; Z82.5 Family history of asthma and other chronic lower respiratory diseases; Z83.3 Family history of diabetes mellitus; Z90.710 Acquired absence of both cervix and uterus; Z99.81 Dependence on supplemental oxygen; Z68.25 Body mass index [BMI] 25.0-25.9, adult
CPT/HCPCS: 31500; 36415; 36556; 36600; 51702; 71045; 80048; 80053; 80150; 80307; 81001; 81025; 82805; 82962; 83605; 83880; 84132; 85025; 85610; 85730; 87040; 87045; 87070; 87077; 87081; 87086; 87186; 87205; 87493; 87899; 93005; 93306; 94003; 94640; 94660; 96361; 96365; 96372; 96375; 99291; C9113; J0330; J1815; J2250; J2704; J3480; J3490; J7060

== ENCOUNTER 2018-04-24 05:59 | Inpatient (IN) | payer MEDICARE, MEDICAID ==
[~2018-04-24] VITALS: Ht 165.1 cm; Wt 70.8 kg
[~2018-04-24 05:59] MED LIST changes: +AMLO10TA2 PO; +ARTISOL13 EACHEYE; +ATOR10TA52 PO; +BISA-13 PO; -CITA-73 PO; +CYCL1TAB18 PO; -CYCL5TAB PO; -DOX100T PO; +ESCI20TA51 PO; +FLUT0.05 NAS; +LORA-622 PO; +LORA-654 PO; -LORA1TAB12 PO; +PRE1T PO; -PRED-188 PO
[2018-04-24] MEDS ORDERED: IPRATROPIUM BROM 0.5 MG/2.5ML INH SOL HHN ONE (06:15)
[2018-04-24] MEDS ORDERED: methylPREDNISolone SOD SUCC 125 MG/2 ML VL IV ONE (06:15)
[2018-04-24] MEDS ORDERED: ALBUTEROL SULF 2.5 MG/0.5ML(0.5%) NEB SOLN HHN ONE (06:15)
[2018-04-24 06:32] LABS: Basophils # (auto) 0.2 uL; Eosinophils # (auto) 0.1 uL; Eosinophils % (auto) 0.9 % (0.0-7.0); Hemoglobin 13.3 g/dL (12.2-16.2); Lymphocytes # (auto) 1.5 uL; Mean Corpuscular Hemoglobin 30.8 pg (28.0-32.0); Mean Corpuscular Hgb Conc. 33.2 g/dL (32.0-36.0); Mean Corpuscular Volume 92.7 fL (80.0-100.0); Monocytes # (auto) 2.2 uL; Monocytes % (auto) 13.3 % (0.0-12.0); Neutrophils # (auto) 12.4 uL; Neutrophils % (auto) 75.8 % (37.0-80.0); Platelet Count (auto) 303 10^3/uL (140-450); Red Blood Cells 4.31 10^6/uL (4.0-5.20); Red Cell Distribution Width 14.7 % (11.8-14.3); White Blood Cell 16.3 10^3/uL (4.4-10.8)
[2018-04-24 06:56] LABS: Alanine Aminotransferase 37 U/L (13-56); Albumin 4.1 g/dL (3.4-5.0); Anion Gap 12 (5-15); Aspartate Aminotransferase 27 U/L (15-37); Blood Urea Nitrogen 22 mg/dL (7-18); Carbon Dioxide 27 mmol/L (21-32); Chloride 98 mmol/L (98-107); GFR African American 86 mL/min; GFR Non-African American 71 mL/min; Glucose 99 mg/dL (74-106); Magnesium 2.3 mg/dL (1.6-2.6); Potassium 3.9 mmol/L (3.5-5.1); Sodium 137 mmol/L (136-145)
[2018-04-24 07:00] LABS: Alkaline Phosphatase 119 U/L (45-117); Bilirubin, Total 0.4 mg/dL (0.2-1.0); Total Protein 7.5 g/dL (6.4-8.2)
[2018-04-24 10:08] LABS: Urine Bacteria NONE SEEN /hpf (None Seen); Urine Blood Negative /uL (Negative); Urine Specific Gravity 1.003 (1.001-1.035); Urine WBC <1 /hpf (0 - 5)
[2018-04-24] MEDS ORDERED: LACTULOSE 20Gm/30ML SOLN PO PRN (10:45)
[2018-04-24] MEDS ORDERED: NITROGLYCERIN 0.4 MG SL TAB SL PRN (10:45)
[2018-04-24] MEDS ORDERED: ACETAMINOPHEN 500 MG TAB PO PRN (10:45)
[2018-04-24] MEDS ORDERED: MORPHINE SULF INJ 2 MG/ML SYRINGE 1ML IV PRN (10:45)
[2018-04-24] MEDS ORDERED: ALBUTEROL SULF 2.5 MG/0.5ML(0.5%) NEB SOLN NEB PRN (10:45)
[2018-04-24] MEDS ORDERED: PROMETHAZINE HCL 25 MG/ML 1ML IV PRN (10:45)
[2018-04-24] MEDS ORDERED: BISACODYL 5 MG EC TAB PO ONE (11:15)
[2018-04-24] MEDS ORDERED: ZOLPIDEM TARTRATE 5 MG TAB PO PRN (11:15)
[2018-04-24] MEDS ORDERED: LORATADINE 10 MG TAB PO ONE (11:15)
[2018-04-24] MEDS ORDERED: CITALOPRAM HYDROBR 20 MG TAB PO ONE (11:15)
[2018-04-24] MEDS ORDERED: PANTOPRAZOLE 40 MG TAB PO ONE (11:15)
[2018-04-24] MEDS ORDERED: ENOXAPARIN SOD 40 MG/0.4 ML SYRINGE SC ONE (11:15)
[2018-04-24] MEDS: DOXYCYCLINE 100MG/250ML 250 ML IV SCH (12:19)
[2018-04-24] MEDS: SODIUM CHLORIDE 0.9% 1,000 ML IV SCH (12:19)
[2018-04-24] MEDS: methylPREDNISolone SOD SUCC 40 MG/ML VL IV SCH ×2 (12:35→18:26)
[2018-04-24] MEDS: amLODIPine BESYLATE 5 MG TAB PO SCH (12:36)
[2018-04-24] MEDS: HYDROcodone-ACET 10/325MG TAB PO SCH ×3 (12:37→22:24)
[2018-04-24] MEDS: FLUTICASONE PROP NASAL SPR 0.05 % (50MCG) 16GM EACHNOSTRI SCH ×2 (12:44→21:53)
[2018-04-24] MEDS: ARTIFICIAL TEARS 15ml OP SCH ×4 (12:45→21:53)
[2018-04-24] MEDS: ALBUTEROL SULF 2.5 MG/0.5ML(0.5%) NEB SOLN NEB SCH ×2 (13:10→18:52)
[2018-04-24] MEDS: IPRATROPIUM BROM 0.5 MG/2.5ML INH SOL NEB SCH ×2 (13:10→18:52)
[2018-04-24 14:09] VITALS: BP 137/94
[2018-04-24] MEDS: SUCRALFATE 1 GM TAB PO SCH ×2 (14:12→22:00)
[2018-04-24] MEDS: MORPHINE SULF INJ 2 MG/ML SYRINGE 1ML IV PRN (17:01)
[2018-04-24] MEDS: ATORVASTATIN 20 MG TAB PO SCH (21:56)
[2018-04-24] MEDS: BUDESONIDE FORMOTEROL FUMARATE INH SCH (22:00)
[2018-04-24 23:30] VITALS: BP 123/84
[2018-04-25] MEDS: SODIUM CHLORIDE 0.9% 1,000 ML IV SCH ×2 (00:25→12:06)
[2018-04-25] MEDS: methylPREDNISolone SOD SUCC 40 MG/ML VL IV SCH ×5 (00:25→23:42)
[2018-04-25] MEDS: DOXYCYCLINE 100MG/250ML 250 ML IV SCH ×3 (00:25→21:24)
[2018-04-25] MEDS: LORazepam 0.5 MG TAB PO PRN ×2 (00:26→22:17)
[2018-04-25] MEDS: ALBUTEROL SULF 2.5 MG/0.5ML(0.5%) NEB SOLN NEB SCH ×4 (01:04→18:45)
[2018-04-25] MEDS: IPRATROPIUM BROM 0.5 MG/2.5ML INH SOL NEB SCH ×4 (01:04→18:45)
[2018-04-25 04:00] VITALS: BP 134/88
[2018-04-25 05:25] LABS: Basophils # (auto) 0 uL; Basophils % (auto) 0.1 % (0.0-2.0); Eosinophils # (auto) 0 uL; Hematocrit 35.4 % (36.0-46.0); Hemoglobin 11.9 g/dL (12.2-16.2); Lymphocytes # (auto) 0.4 uL; Mean Corpuscular Hemoglobin 30.6 pg (28.0-32.0); Mean Corpuscular Hgb Conc. 33.6 g/dL (32.0-36.0); Monocytes # (auto) 0.8 uL; Monocytes % (auto) 5.5 % (0.0-12.0); Neutrophils # (auto) 12.9 uL; Neutrophils % (auto) 91.4 % (37.0-80.0); Platelet Count (auto) 257 10^3/uL (140-450); Red Blood Cells 3.89 10^6/uL (4.0-5.20); Red Cell Distribution Width 14.2 % (11.8-14.3); White Blood Cell 14.2 10^3/uL (4.4-10.8)
[2018-04-25] MEDS: ARTIFICIAL TEARS 15ml OP SCH ×4 (05:40→21:21)
[2018-04-25] MEDS: SUCRALFATE 1 GM TAB PO SCH ×3 (05:40→21:19)
[2018-04-25] MEDS: HYDROcodone-ACET 10/325MG TAB PO SCH ×4 (05:40→21:19)
[2018-04-25 05:45] LABS: Albumin 3.4 g/dL (3.4-5.0); BUN/Creatinine Ratio 22.9; Bilirubin, Total 0.3 mg/dL (0.2-1.0); Calcium 8.4 mg/dL (8.5-10.1); Potassium 3.4 mmol/L (3.5-5.1); Total Protein 6.3 g/dL (6.4-8.2)
[2018-04-25 08:00] VITALS: BP 134/83
[2018-04-25] MEDS: BUDESONIDE FORMOTEROL FUMARATE INH SCH (09:54)
[2018-04-25] MEDS: ENOXAPARIN SOD 40 MG/0.4 ML SYRINGE SC SCH (10:00)
[2018-04-25] MEDS: FLUTICASONE PROP NASAL SPR 0.05 % (50MCG) 16GM EACHNOSTRI SCH ×2 (10:15→21:20)
[2018-04-25] MEDS: LORATADINE 10 MG TAB PO SCH (10:15)
[2018-04-25] MEDS: CITALOPRAM HYDROBR 20 MG TAB PO SCH (10:15)
[2018-04-25] MEDS: PANTOPRAZOLE 40 MG TAB PO SCH (10:16)
[2018-04-25] MEDS: MORPHINE SULF INJ 2 MG/ML SYRINGE 1ML IV PRN (10:21)
[2018-04-25] MEDS: amLODIPine BESYLATE 5 MG TAB PO SCH (10:21)
[2018-04-25 11:52] VITALS: BP 134/76
[2018-04-25] MEDS: BISACODYL 5 MG EC TAB PO SCH (12:06)
[2018-04-25 15:50] VITALS: BP 140/73
[2018-04-25 19:47] VITALS: BP 128/66
[2018-04-25] MEDS: ATORVASTATIN 20 MG TAB PO SCH (21:20)
[2018-04-26] VITALS (7 sets, daily range): BP systolic 123–152; BP diastolic 71–90
[2018-04-26] MEDS: IPRATROPIUM BROM 0.5 MG/2.5ML INH SOL NEB SCH ×4 (00:29→19:07)
[2018-04-26] MEDS: ALBUTEROL SULF 2.5 MG/0.5ML(0.5%) NEB SOLN NEB SCH ×4 (00:29→19:09)
[2018-04-26] MEDS: ARTIFICIAL TEARS 15ml OP SCH ×4 (05:18→22:22)
[2018-04-26] MEDS: methylPREDNISolone SOD SUCC 40 MG/ML VL IV SCH ×3 (05:18→22:20)
[2018-04-26] MEDS: SUCRALFATE 1 GM TAB PO SCH ×3 (05:18→22:20)
[2018-04-26] MEDS: HYDROcodone-ACET 10/325MG TAB PO SCH ×4 (05:19→22:21)
[2018-04-26] MEDS: ENOXAPARIN SOD 40 MG/0.4 ML SYRINGE SC SCH (10:00)
[2018-04-26] MEDS: FLUTICASONE PROP NASAL SPR 0.05 % (50MCG) 16GM EACHNOSTRI SCH ×2 (10:14→22:22)
[2018-04-26] MEDS: CITALOPRAM HYDROBR 20 MG TAB PO SCH (10:15)
[2018-04-26] MEDS: LORATADINE 10 MG TAB PO SCH (10:15)
[2018-04-26] MEDS: PANTOPRAZOLE 40 MG TAB PO SCH (10:15)
[2018-04-26] MEDS: amLODIPine BESYLATE 5 MG TAB PO SCH (10:16)
[2018-04-26] MEDS: DOXYCYCLINE 100MG/250ML 250 ML IV SCH ×2 (10:18→22:22)
[2018-04-26] MEDS: BISACODYL 5 MG EC TAB PO SCH (10:30)
[2018-04-26] MEDS: MORPHINE SULF INJ 2 MG/ML SYRINGE 1ML IV PRN (10:49)
[2018-04-26] MEDS: ATORVASTATIN 20 MG TAB PO SCH (22:00)
[2018-04-26] MEDS: LORazepam 0.5 MG TAB PO PRN (22:59)
[2018-04-27] MEDS: IPRATROPIUM BROM 0.5 MG/2.5ML INH SOL NEB SCH ×3 (00:46→11:47)
[2018-04-27] MEDS: ALBUTEROL SULF 2.5 MG/0.5ML(0.5%) NEB SOLN NEB SCH ×3 (00:47→11:47)
[2018-04-27] MEDS: MORPHINE SULF INJ 2 MG/ML SYRINGE 1ML IV PRN (01:28)
[2018-04-27 05:00] VITALS: BP 139/84
[2018-04-27] MEDS: methylPREDNISolone SOD SUCC 40 MG/ML VL IV SCH ×2 (06:11→14:00)
[2018-04-27] MEDS: SUCRALFATE 1 GM TAB PO SCH ×2 (06:11→14:00)
[2018-04-27] MEDS: ARTIFICIAL TEARS 15ml OP SCH ×2 (06:11→12:00)
[2018-04-27] MEDS: HYDROcodone-ACET 10/325MG TAB PO SCH ×2 (06:12→13:41)
[2018-04-27 06:35] LABS: Basophils # (auto) 0 uL; Basophils % (auto) 0.1 % (0.0-2.0); Eosinophils # (auto) 0 uL; Hematocrit 40.3 % (36.0-46.0); Hemoglobin 13.7 g/dL (12.2-16.2); Lymphocytes # (auto) 0.3 uL; Lymphocytes % (auto) 2.2 % (10.0-50.0); Mean Corpuscular Hemoglobin 30.8 pg (28.0-32.0); Mean Corpuscular Volume 90.7 fL (80.0-100.0); Monocytes % (auto) 7.2 % (0.0-12.0); Neutrophils # (auto) 13.1 uL; Neutrophils % (auto) 90.5 % (37.0-80.0); Nucleated Red Blood Cells % 0.1 %; Platelet Count (auto) 279 10^3/uL (140-450); Red Blood Cells 4.44 10^6/uL (4.0-5.20); Red Cell Distribution Width 14.1 % (11.8-14.3); White Blood Cell 14.5 10^3/uL (4.4-10.8)
[2018-04-27 06:55] LABS: BUN/Creatinine Ratio 18.1; Calcium 8.4 mg/dL (8.5-10.1)
[2018-04-27 09:00] VITALS: BP 133/84
[2018-04-27] MEDS: PANTOPRAZOLE 40 MG TAB PO SCH (09:55)
[2018-04-27] MEDS: LORATADINE 10 MG TAB PO SCH (09:55)
[2018-04-27] MEDS: CITALOPRAM HYDROBR 20 MG TAB PO SCH (09:55)
[2018-04-27] MEDS: DOXYCYCLINE 100MG/250ML 250 ML IV SCH (09:56)
[2018-04-27] MEDS: amLODIPine BESYLATE 5 MG TAB PO SCH (09:56)
[2018-04-27] MEDS: BISACODYL 5 MG EC TAB PO SCH (10:00)
[2018-04-27] MEDS: ENOXAPARIN SOD 40 MG/0.4 ML SYRINGE SC SCH (10:00)
[2018-04-27] MEDS: FLUTICASONE PROP NASAL SPR 0.05 % (50MCG) 16GM EACHNOSTRI SCH (10:09)
[2018-04-27] MEDS ORDERED: PRED1PAK10 PO (10:41)
[2018-04-27 11:59] VITALS: BP 133/84
[2018-04-27 13:00] VITALS: BP 122/77
[2018-04-27 13:30] VITALS: BP 133/84
== END 2018-04-27 16:20 | disposition home or self-care (01) | DRG 189 ==
LOC: EDBD 05:59 → ER 06:03 → TELE 06:04 → DOU IN ICU 23:09 → TELE-EAST 04-26 14:40
PROVIDERS: ADMIT Internal Medicine; ATTEND Internal Medicine Pulmonary Disease
PROC: 5A09357 Assistance with Respiratory Ventilation, Less than 24 Consecutive Hours, Continuous Positive Airway Pressure (ICD-10-PCS; principal; 2018-04-24)
DX: J96.20 Acute and chronic respiratory failure, unspecified whether with hypoxia or hypercapnia (principal); J44.1 Chronic obstructive pulmonary disease with (acute) exacerbation; E78.5 Hyperlipidemia, unspecified; I10 Essential (primary) hypertension; K21.9 Gastro-esophageal reflux disease without esophagitis; M81.0 Age-related osteoporosis without current pathological fracture; F41.9 Anxiety disorder, unspecified; T38.0X5A Adverse effect of glucocorticoids and synthetic analogues, initial encounter; M06.9 Rheumatoid arthritis, unspecified; Z79.52 Long term (current) use of systemic steroids; Z88.1 Allergy status to other antibiotic agents; Z88.0 Allergy status to penicillin; Z82.5 Family history of asthma and other chronic lower respiratory diseases; Z87.11 Personal history of peptic ulcer disease; Z79.899 Other long term (current) drug therapy; Y92.89 Other specified places as the place of occurrence of the external cause; Z90.710 Acquired absence of both cervix and uterus; Z99.81 Dependence on supplemental oxygen; Z88.8 Allergy status to other drugs, medicaments and biological substances; Z88.2 Allergy status to sulfonamides; Z91.041 Radiographic dye allergy status; Z91.012 Allergy to eggs; Z91.040 Latex allergy status; Z91.011 Allergy to milk products; Z88.5 Allergy status to narcotic agent; Z91.010 Allergy to peanuts; Z91.013 Allergy to seafood
CPT/HCPCS: 36415; 36600; 71045; 80048; 80053; 81001; 82805; 83605; 83735; 83880; 84146; 84484; 85025; 85379; 87040; 87081; 93005; 94640; 94660; 94761; 96372; 96374; 96375; J3490